=== PATIENT | female | born 1990 | race Hispanic/Latino ===

== ENCOUNTER 2019-05-16 14:22 | Inpatient (IN) | payer OTHER, SELFPAY ==
[~2019-05-16 14:22] MED LIST: CEFAZOLIN 2 GM in NA CHLORIDE 0.9% 100 ML IVPB ONE
[2019-05-16] MEDS ORDERED: Ringers Lactate 1,000 ML IV PRN (14:33)
[2019-05-16] MEDS ORDERED: METHYLERGONOVINE 0.2MG/ML AMP IM ONE (14:35)
[2019-05-16] MEDS ORDERED: CARBOPROST TROME 250 MCG/ML IM ONE (14:35)
[2019-05-16] MEDS ORDERED: NA CIT/CITRIC AC 30 ML ORAL UDC ONE (14:38)
[2019-05-16] MEDS ORDERED: FAMOTIDINE 20 MG/2 ML VIAL IV ONE (14:38)
[2019-05-16] MEDS ORDERED: METOCLOPRAMIDE 10 MG/2mL INJ ONE (14:38)
[2019-05-16] MEDS ORDERED: FENTANYL CITR 250 MCG/5 ML ONE (14:39)
[2019-05-16] MEDS ORDERED: ONDANSETRON 4 MG/2 ML VIAL ONE ×2 (14:39→18:59)
[2019-05-16] MEDS ORDERED: NS 0.9% VIAL 30 ML ONE (14:39)
[2019-05-16] MEDS ORDERED: MORPHINE SULFATE/PF 1 MG/ML (10 ML AMP) ONE (14:39)
[2019-05-16] MEDS ORDERED: Phenylephrine HCl 10 MG/ML 1 ML VIAL ONE (14:39)
[2019-05-16] MEDS ORDERED: OXYTOCIN 10 UNIT/ML ML IV ONE (14:39)
[2019-05-16] MEDS ORDERED: NA CIT/CITRIC AC 30 ML ORAL UDC PO ONE (14:40)
[2019-05-16 14:54] LABS: Absolute Lymphocytes (CBC) 1.5 K/uL (0.7-4.9); Basophils % 0.5 % (0-1.3); Lymphocytes % 16.7 % (15.3-44.8); MPV 9.6 fL (7.6-11.3); RBC Red Blood Cell Count 3.94 M/uL (3.86-4.86)
[2019-05-16] MEDS ORDERED: Ringers Lactate 1,000 ML IV SCH (15:00)
[2019-05-16] MEDS ORDERED: METOCLOPRAMIDE 10 MG/2mL INJ IV SCH (15:00)
[2019-05-16] MEDS ORDERED: CEFAZOLIN/SWI 1gm 1 GM/10 ML SYR IV SCH (15:00)
[2019-05-16 15:23] VITALS: BMI 28.4
[2019-05-16 18:17] VITALS: O2SAT 98
[2019-05-16] MEDS ORDERED: CEFAZOLIN 2 GM in NA CHLORIDE 0.9% 100 ML IVPB SCH (19:00)
[2019-05-16] MEDS ORDERED: DOCUSATE NA/SENNA CONC 1 TAB PO PRN (19:54)
[2019-05-16] MEDS ORDERED: Rho(D) IG (HUMAN) 300 MCG SYR IM PRN (19:54)
[2019-05-16] MEDS ORDERED: CARBOPROST TROME 250 MCG/ML IM PRN (19:54)
[2019-05-16] MEDS ORDERED: METHYLERGONOVINE 0.2 MG TAB PO PRN (19:54)
[2019-05-16] MEDS ORDERED: ONDANSETRON 4 MG/2 ML VIAL IV PRN (19:54)
[2019-05-16] MEDS ORDERED: MEASLES,MUMPS,RUBELLA VAC 0.5ML SUBQ ONE (19:54)
[2019-05-16] MEDS ORDERED: ACETAMINOPHEN 500 MG TAB PO PRN (19:54)
[2019-05-16] MEDS ORDERED: BISACODYL 10 MG RECTAL SUPP RECT PRN (19:54)
[2019-05-16] MEDS ORDERED: Tdap (Diph,Pertuss(Acell),Tet Vac) 0.5 ML SYR IMVAC ONE (19:54)
[2019-05-16] MEDS ORDERED: D5LR 1,000 ML IV SCH (20:00)
[2019-05-16] MEDS ORDERED: OXYTOCIN/LR 20 UNIT/1,000 ML BAG IV SCH ×2 (20:00)
[2019-05-16 20:51] LABS: RPR (Rapid Plasma Reagin) NON-REACT (NON-REACT)
--- NOTE | 2019-05-16 21:13 | PREOPHP ---
Date of Admission: 05/16/2019 History Of Present Illness: A 28-year-old 5, para 2, 2 previous C-sections, both in [place], scheduled for on May 19 at 39 weeks best estimate, came into my office saying that she h ad rupture of membranes at 9 a.m. this morning. Had not come to the hospital as per instructions. I ndeed gross rupture of membranes was seen, clear fluid. Patient was about 2 cm, mildly uncomfortable . She is nilesh mildly, not in good labor yet. We send her to Labor and Delivery. She is Rh p ositive, immune to Rubella, negative strep screen. We are making preparations for section. She has already been counseled about infection, blood loss, anesthetic complications, injury to blad rosenda, bowel and ureter, postoperative complications, clots in legs, and pneumonia. Patient knows full y well this does not constitute all the possible problems that could occur during or following surger y and knows with each surgery the risk of complications is higher. She has a male infant. Family History: Basically noncontributory. Allergies: SHE HAS NO ALLERGIES. Past Surgical History: She has had appendix removed. Social History: She does not smoke. Physical Examination: Vital Signs: Stable. HEENT: Clear. Pupils equal, round, and reactive to light and accommodation. Conjunctivae well perf used. No oral, lingual, or buccal lesions. Chest and Lungs: Clear. Heart: Without murmurs, thrills, heaves, or rubs on previous visit. Breasts: Not examined today. Abdomen: Uterus is term size. Baby is vertex. Extremities: Clear without edema, cyanosis, or clubbing. Assessment/plan: Best estimate is 38 weeks 3 days with spontaneous rupture of membranes, very early labor. We will proceed with section as soon as possible. Surgery is involved in a longer c ase downstairs, but patient is not uncomfortable at this point, so we will await medical front desk coordinator progression. If she starts going into more active labor pattern, we will get Anesthesia send out a nurse anesthe tist and proceed sooner. CEDRIC/CHER Voice ID: [id number]
--- NOTE | 2019-05-17 01:08 | OP ---
Surgeon: Jhon Abbott MD Indications: 28-year-old 5, para 2, 2 previous C-sections, 38 weeks 3 days, [facility] reporting rupture of membranes since 9 this morning and contractions. Indeed, had gross rupture of membranes, clear fluid, 2 cm, nilesh regularly at that point, sent to Labor and Delivery. A fter thorough counseling, which has been done several times during the including infection, blood loss, anesthetic complications; injury to bladder, bowel, ureter; postoperative complications; clots in legs; pneumonia, patient was taken to the surgical area. Description Of Operation: Spinal block was performed by Dr. Curiel. Prepping and draping was performe d, then time-out was performed. Pfannenstiel incision was created over previous incision site. The incision was carried to the fascia. The fascia was incised and incision was carried transversely raymundo aterally. Significant amount of thick fascial tissue noted. Anterior and posterior fascial planes w ere developed. Defect in the peritoneum was entered and then scissors were used to enlarge the defec t towards the area of the bladder. Bladder flap was produced in the low-transverse uterine incision. 6-pound 7-ounce male delivered without difficulties. Apgars 9 and 9. Cord blood specimen was obta ined. Placenta was removed manually. Uterus cleared of clot and blood and exteriorized. Cervical o s dilated with ring clamp. Uterus was mildly hypotonic. 0.2 mg of Methergine as well as IV drip Pit ocin and massage. Estimated blood loss 1000 to 1100 cc during the procedure. Uterine incision was c losed with a running locked stitch of 1 chromic followed by 2 [id number] stitches in the right a ngle for complete hemostasis. Gutters were clear of clot and blood. Uterus was replaced in the nikole toneal cavity. Incision line was checked again and no further bleeding. Muscles were reapproximated with 0 Vicryl 3 interrupted sutures. Fascia was closed with 1 Vicryl running from either angle to t he midline. Subcutaneous tissue was closed with 2-0 plain. Absorbable sheeba were placed and then metal seheba. Patient had been given 2 g of Ancef for prophylaxis, tolerated all procedures well, t ransferred back to her room in good condition. Final Diagnoses: Term intrauterine at 38 weeks 2 days, previous section, rupture of membranes, early labor, repeat section, spinal block anesthesia, mild uterine hypotonus. CEDRIC/CHER Voice ID: [id number] Report ID: [id number]
[2019-05-17] MEDS ORDERED: CEFAZOLIN/SWI 2gm 2 GM/20 ML SYR ONE (03:10)
[2019-05-17] MEDS: Oxycodone HCl/Acetaminophen 1 TAB TAB PO PRN ×2 (05:52→16:15)
--- NOTE | 2019-05-17 08:56 | PREOPHP ---
Date of Admission: 05/16/2019 History Of Present Illness: A 31-year-old, 3, para 2, previous C-sections, requesting flakita an section, possible tubal ligation depending upon lower uterine segment. Infection; blood loss; ane sthetic complications; injury to bladder, bowel, ureter; postoperative complications; clots in legs; and pneumonia discussed. Patient knows fully well this does not constitute all the possible problems that could occur during or following surgery. She is gestational diabetic. No signs of accreta. W e will deliver her prior to 39 weeks because of diabetes. Family History: Mother with hypertension. Mother and brother with diabetes. Allergies: PATIENT HAS NO ALLERGIES. Medications: She does not smoke. Physical Examination: HEENT: Clear. Pupils are equal, round, and reactive to light and accommodation. Conjunctivae well perfused. No oral, lingual, or buccal lesions. Chest and Lungs: Clear. Heart: Without murmurs, thrills, heaves, or rubs. Breasts: Without masses on previous visits. Abdomen: Massively obese. Patient is only 4 feet 11 inches, but weighs 233 pounds. Extremities: Clear. Assessment/plan: Baby is vertex. Finger tip fairly well applied. We will proceed with repeat genesis pernell section on of this week. CEDRIC/CHER Voice ID: [id number]
--- NOTE | 2019-05-17 09:17 | PN ---
The patient postoperatively has done quite well. H and H with minimal change. Lochia is normal. No complaints from the patient. We will discontinue her Rosado and IV, begin ambulation and p.o. intake . She is Rh positive, immune to Rubella. If all goes well, send her home tomorrow. CEDRIC/CHER Voice ID: [id number] Report ID: [id number]
[2019-05-17] MEDS ORDERED: FAMOTIDINE 20 MG/2 ML VIAL IV ONE (14:41)
[2019-05-18] MEDS: Oxycodone HCl/Acetaminophen 1 TAB TAB PO PRN (03:34)
[2019-05-18 09:55] VITALS: BP 114/71
[2019-05-18 10:39] VITALS: TEMP 97.3
--- NOTE | 2019-05-19 05:33 | DS ---
Date of Discharge: 05/18/2019 Hospital Course: A 28-year-old female, 5, para 2, had spontaneous rupture of membranes, went into early labor. Had a repeat section with delivery of a 6-pound, 7-ounce male infant, Ap gars 9 and 9. Spinal block anesthesia. Mild uterine hypertonicity 2902-2860 cc blood loss. Ancef f or prophylaxis. Rh positive, immune to Rubella. Negative beta strep screen. Postoperatively, is af ebrile, ambulating and voiding. Lochia is normal. This morning temperature is slightly elevated, bu t her breasts are not engorged. Incision looks fine. We will hydrate her, walk her around, take 2 t o 3 more temperatures and if they are all under 100 we will dismiss her. She is to report to my offi ce next week for staple removal, to report any temperature elevation of 100 degrees or greater, sever e pain, heavy bleeding, or any other type of abnormalities. Will be dismissed with tramadol, althoug h she may elect to take Motrin instead. Final Diagnoses: Term intrauterine , 38 weeks 2 days, spontaneous rupture of membranes, in labor, repeat section, mild uterine hypotonus. CEDRIC/CHER Voice ID: [id number] Report ID: [id number]
[2019-05-20 03:12] LABS: HBsAG Nonreactive (Nonreactive)
== END 2019-05-18 10:37 | disposition home or self-care (01) | DRG 788 ==
LOC: 2ND-WC 14:22
PROVIDERS: ADMIT Specialist; ATTEND Specialist
PROC: 10D00Z1 Extraction of Products of Conception, Low, Open Approach (ICD-10-PCS; principal; 2019-05-16 18:30)
DX: O34.211 Maternal care for low transverse scar from previous cesarean delivery (principal); O62.2 Other uterine inertia; Z3A.38 38 weeks gestation of pregnancy; Z37.0 Single live birth
CPT/HCPCS: 36415; 85014; 85025; 86592; 86900; 86901; 87340; 88307; J0690; J2210; J2370; J2405; J2590; J2765; J3010

== ENCOUNTER 2022-12-02 14:01 | Emergency (ER) | payer SELFPAY ==
--- NOTE | 2022-12-02 15:10 | RAD REPORT ---
EXAM DESCRIPTION: RAD - Femur Left - 12/02/2022 2:56 pm CLINICAL HISTORY: PAIN COMPARISON: No comparisons FINDINGS: No femur fracture seen. No dislocation seen.
--- NOTE | 2022-12-02 15:10 | RAD REPORT ---
EXAM DESCRIPTION: RAD - Knee Left 3 View - 12/02/2022 2:56 pm CLINICAL HISTORY: PAIN COMPARISON: No comparisons FINDINGS: Lucency in the patella suspicious for patella fracture. No dislocation. IMPRESSION: Patella fracture.
--- NOTE | 2022-12-02 15:10 | RAD REPORT ---
EXAM DESCRIPTION: RAD - Tib Fib Left - 12/02/2022 2:56 pm CLINICAL HISTORY: PAIN COMPARISON: No comparisons FINDINGS: Soft tissue swelling is seen along the lateral aspect of the leg. No fracture or dislocati on present.
--- NOTE | 2022-12-02 15:48 | RAD REPORT ---
EXAM DESCRIPTION: US - Extremity Venous Uni Ltd - 12/02/2022 3:38 pm CLINICAL HISTORY: Pain Leg swelling and edema. COMPARISON: No comparisons FINDINGS: Left lower extremity venous system was interrogated with Doppler technique. Normal flow, c ompressibility and augmentation was noted. There is no DVT present. IMPRESSION: No evidence of left lower extremity deep venous thrombosis.
--- NOTE | 2022-12-02 16:16 | ER ---
Nurse's Notes [facility] Name: Kaylynn Richmond Age: 32 yrs Sex: Female : 1990 Arrival Date: 12/02/2022 Time: 14:06 Bed IW1 Private MD: Diagnosis: Fracture of patella Presentation: 12/02 14:39 Chief complaint: Patient states: fell Wednesday. C/o pain to L knee/ thigh and mild pain ss to L shoulder. Significant bruising noted to leg and moderate bruising to L shoulder. Coronavirus screen: Client denies travel out of the [place] in the last 14 days. Ebola Screen: Patient denies exposure to infectious person. Patient denies travel to an Ebola-affected area in the 21 days before illness onset. Initial Sepsis Screen: Does the patient meet any 2 criteria? No. Patient's initial sepsis screen is negative. Does the patient have a suspected source of infection? No. Patient's initial sepsis screen is negative. Risk Assessment: Do you want to hurt yourself or someone else? Patient reports no desire to harm self or others. Onset of symptoms was November 28, 2022. 14:39 Method Of Arrival: Wheelchair ss 14:39 Acuity: RODRIGO 4 ss Historical: - Allergies: 14:40 No Known Allergies; ss - Home Meds: 14:40 None [Active]; ss - PMHx: 14:40 None; ss - PSHx: 14:40 Appendectomy; section; ss - Immunization history:: Client reports having NOT received the Covid vaccine. - Social history:: Smoking status: Patient denies any tobacco usage or history of. Vital Signs: 14:39 BP 93 / 53; Pulse 68; Resp 14; Temp 98.4(TE); Pulse Ox 100% on R/A; Weight 80.74 kg; ss Height 5 ft. 3 in. (160.02 cm); Pain 6/10; 14:39 Body Mass Index 31.53 (80.74 kg, 160.02 cm) ED Course: 14:06 Patient arrived in ED. rg4 14:10 [facility] Cutler [facility] jh7 14:10 Ye Ellison MD is Attending Physician. [facility] 14:40 Triage completed. ss 14:40 Arm band placed on right wrist. ss 14:58 XRAY Knee LEFT 3 view In Process Unspecified. EDMS 14:58 XRAY Femur LEFT In Process Unspecified. EDMS 14:58 XRAY Tib Fib LEFT In Process Unspecified. EDMS 15:40 US Extremity Venous Unilateral Ltd In Process Unspecified. EDMS 16:16 Jl Biggs MD is Referral Physician. 7 Administered Medications: 16:38 Drug: Ketorolac 60 mg Route: IM; Site: left gluteus; [facility] 16:38 Drug: HYDROcodone-acetaminophen 5 mg-325 mg 1 tabs Route: PO; [facility] Outcome: 16:16 Discharge ordered by . 7 16:38 Discharged to home ambulatory, via wheelchair. 5 16:38 Condition: good 16:38 Discharge instructions given to patient, Instructed on discharge instructions, follow up and referral plans. medication usage, safety practices, Demonstrated understanding of instructions, follow-up care, medications, Prescriptions given X 2. 16:38 Patient left the ED. [facility] Signatures: Dispatcher [employer] EDKS Dominga Abarca RN RN Blanche Falcon 4 Shayla Ewing, CARINE RN 5 Kym Cutler, HELIUM ARC WELDER HELIUM ARC WELDER 7
--- NOTE | 2022-12-02 16:17 | EDPHYS ---
Physician Documentation [facility] Name: Kaylynn Richmond Age: 32 yrs Sex: Female : 1990 Arrival Date: 12/02/2022 Time: 14:06 Bed IW1 Private MD: MARIA L Physician Ye Ellison HPI: 12/02 14:40 This 32 yrs old Female presents to ER via Wheelchair with complaints of Fall jh7 Injury, Leg Pain. 14:40 Details of fall: The patient fell from a height, countertop. Onset: The jh7 symptoms/episode began/occurred 4 day(s) ago. Associated injuries: The patient sustained left leg, contusion, decreased range of motion, ecchymosis, swelling. Patient reports that she was standing on the bar on Wednesday, slipped, and fell injuring her left knee and thigh. She reports mild left upper arm pain, but has full range of motion. Denies LOC or head injury.. Historical: - Allergies: 14:40 No Known Allergies; ss - Home Meds: 14:40 None [Active]; ss - PMHx: 14:40 None; ss - PSHx: 14:40 Appendectomy; section; ss - Immunization history:: Client reports having NOT received the Covid vaccine. - Social history:: Smoking status: Patient denies any tobacco usage or history of. ROS: 14:40 Constitutional: Negative for fever, chills, and weight loss, Eyes: Negative for injury, jh7 pain, redness, and discharge, ENT: Negative for injury, pain, and discharge, Neck: Negative for injury, pain, and swelling, Cardiovascular: Negative for chest pain, palpitations, and edema, Respiratory: Negative for shortness of breath, cough, wheezing, and pleuritic chest pain, Abdomen/GI: Negative for abdominal pain, nausea, vomiting, diarrhea, and constipation, Back: Negative for injury and pain, Skin: Negative for injury, rash, and discoloration, Neuro: Negative for headache, weakness, numbness, tingling, and seizure. 14:40 MS/extremity: Positive for injury or acute deformity, contusion, decreased range of motion, ecchymosis, pain, tenderness, of the left leg. 14:40 All other systems are negative. Exam: 14:40 Constitutional: This is a well developed, well nourished patient who is awake, alert, jh7 and in no acute distress. Head/Face: Normocephalic, atraumatic. Eyes: Pupils equal round and reactive to light, extra-ocular motions intact. Lids and lashes normal. Conjunctiva and sclera are non-icteric and not injected. Cornea within normal limits. Periorbital areas with no swelling, redness, or edema. Neck: Trachea midline, no thyromegaly or masses palpated, and no cervical lymphadenopathy. Supple, full range of motion without nuchal rigidity, or vertebral point tenderness. No Meningismus. Cardiovascular: Regular rate and rhythm with a normal S1 and S2. No gallops, murmurs, or rubs. Normal PMI, no JVD. No pulse deficits. Respiratory: Lungs have equal breath sounds bilaterally, clear to auscultation and percussion. No rales, rhonchi or wheezes noted. No increased work of breathing, no retractions or nasal flaring. Abdomen/GI: Soft, non-tender, with normal bowel sounds. No distension or tympany. No guarding or rebound. No evidence of tenderness throughout. Back: No spinal tenderness. No costovertebral tenderness. Full range of motion. Skin: Warm, dry with normal turgor. Normal color with no rashes, no lesions, and no evidence of cellulitis. Neuro: Awake and alert, GCS 15, oriented to person, place, time, and situation. Sensory grossly intact. 14:40 Musculoskeletal/extremity: ROM: limited active range of motion due to pain, in the left knee, Pulses: are normal with no appreciated deficits, noted to be 3+ in the right popliteal artery, right dorsalis pedis artery, left popliteal artery and left dorsalis pedis artery, the left knee Sensation intact. Severe pain noted. Severe bruising and moderate swelling noted diffusely of the left knee. Bruising extends up to the femur and down to the proximal tib-fib area. Patient has significant pain with complete flexion. Pain with weightbearing. Left proximal humerus has some mild to moderate bruising but patient has full range of motion with no pain.. Vital Signs: 14:39 BP 93 / 53; Pulse 68; Resp 14; Temp 98.4(TE); Pulse Ox 100% on R/A; Weight 80.74 kg; ss Height 5 ft. 3 in. (160.02 cm); Pain 6/10; 14:39 Body Mass Index 31.53 (80.74 kg, 160.02 cm) ss MDM: 14:10 Patient medically screened. [facility] 16:00 Differential diagnosis: contusion, fracture, sprain, DVT. Data reviewed: vital signs, [facility] nurses notes, radiologic studies, plain films, ultrasound. I considered the following discharge prescriptions or medication management in the emergency department Medications were administered in the Emergency Department. See MAR. Independent interpretation of the following test(s) in the Emergency Department. Historians other than the Patient: Spouse/Significant Other: . Counseling: I had a detailed discussion with the patient and/or guardian regarding: the historical points, exam findings, and any diagnostic results supporting the discharge/admit diagnosis, the need for outpatient follow up, a orthopedic surgeon, to return to the emergency department if symptoms worsen or persist or if there are any questions or concerns that arise at home. ED course: Patient placed in a knee immobilizer with crutches. Explained to the patient and her that there is a possible patella fracture and that she would need to follow-up with an orthopedist. Advised to ice and elevate at home and to take pain medication as directed. If she develops any new concerning symptoms, she may return to the ER for further eval.. 12/02 14:29 Order name: XRAY Knee LEFT 3 view; Complete Time: 15:19 [facility] 12/02 14:29 Order name: XRAY Femur LEFT; Complete Time: 15:19 [facility] 12/02 14:29 Order name: XRAY Tib Fib LEFT; Complete Time: 15:19 [facility] 12/02 14:43 Order name: US Extremity Venous Unilateral Ltd; Complete Time: 15:52 [facility] 12/02 15:53 Order name: Knee Immobilizer; Complete Time: 16:29 [facility] 12/02 15:53 Order name: Crutches; Complete Time: 16:29 [facility] Administered Medications: 16:38 Drug: Ketorolac 60 mg Route: IM; Site: left gluteus; [facility] 16:38 Drug: HYDROcodone-acetaminophen 5 mg-325 mg 1 tabs Route: PO; [facility] Disposition Summary: 12/02/22 16:16 Discharge Ordered Location: Home [facility] Problem: new [facility] Symptoms: are unchanged [facility] Condition: Stable [facility] Diagnosis - Fracture of patella [facility] Followup: [facility] - With: Jl Biggs MD - When: 2 - 3 days - Reason: Recheck today's complaints Discharge Instructions: - Discharge Summary Sheet [facility] - Contusion [facility] - Fall Prevention in the Home, Adult [facility] - Patellar Fracture, Adult [facility] Forms: - Medication Reconciliation Form [facility] - Thank You Letter [facility] - Prescription Opioid Use [facility] Prescriptions: - Naprosyn 500 mg Oral Tablet - take 1 tablet by ORAL route 2 times per day take with food; 30 tablet; Refills: [facility] 0, Product Selection Permitted - Tramadol 50 mg Oral Tablet - take 1 tablet by ORAL route every 8 hours as needed; 12 tablet; Refills: 0, [facility] Product Selection Permitted Signatures: Dispatcher [employer] Dominga Callahan, RN RN Shayla Ewing RN RN jh5 Kym Cutler, SOFTWARE INSTALLER SOFTWARE IN[facility]orth[facility] Center
[2022-12-02] MEDS ORDERED: HYDROCODONE/APAP 5/325 MG TAB ONE (16:35)
[2022-12-02] MEDS ORDERED: KETOROLAC 30 MG/ML INJ ONE (16:35)
[2022-12-02 16:55] VITALS: BP 93/53; TEMP 98.4; O2SAT 100
== END 2022-12-02 16:38 | disposition home or self-care (01) ==
LOC: ER 14:01
DX: S82.002A Unspecified fracture of left patella, initial encounter for closed fracture (principal)
CPT/HCPCS: 93971